=== PATIENT | female | born 1975 | race Two or more races ===

== ENCOUNTER 2019-09-22 09:51 | Inpatient (IN) | payer OTHER ==
[~2019-09-22] VITALS: Ht 165.1 cm; Wt 76.2 kg
[2019-09-26] MEDS ORDERED: AMBIEN10 MG PO (08:06)
[2019-09-26] MEDS ORDERED: PLAQUENIL PO (08:07)
[2019-09-30] MEDS ORDERED: HYDROXYCHLOROQ200 MG (08:07)
[2019-10-02] MEDS ORDERED: OXYC1TAB9 PO (10:08)
[2019-10-02] MEDS ORDERED: FERROUS SULFAT325 M1 PO (10:08)
[2019-10-02] MEDS ORDERED: FAMOTIDINE20 MG PO (10:08)
[2019-10-02] MEDS ORDERED: DOCUSATE SODIU100 MG PO (10:08)
[2019-10-02] MEDS ORDERED: SIMETHICONE125 M1 PO (10:08)
== END 2019-10-02 11:43 | disposition home or self-care (01) | DRG 743 ==
LOC: ADM 09-25 11:00 → EDSTATUS 09-25 11:00 → OB/GYN 09-29 08:30 → O/R 09-29 08:30 → SURH 09-29 10:00 → OB/GYN 09-29 19:06
PROVIDERS: Obstetrics & Gynecology; ADMIT Obstetrics & Gynecology
PROC: 0UT90ZZ Resection of Uterus, Open Approach (ICD-10-PCS; principal; 2019-09-29 10:00)
PROC: 0UT70ZZ Resection of Bilateral Fallopian Tubes, Open Approach (ICD-10-PCS; 2019-09-29 10:00)
DX: D25.1 Intramural leiomyoma of uterus (principal); N93.8 Other specified abnormal uterine and vaginal bleeding; N72 Inflammatory disease of cervix uteri; N83.8 Other noninflammatory disorders of ovary, fallopian tube and broad ligament; N92.0 Excessive and frequent menstruation with regular cycle